=== PATIENT | male | born 1995 | race Hispanic/Latino ===

== ENCOUNTER 2019-04-19 09:28 | Emergency (ER) | payer OTHER ==
[~2019-04-19] VITALS: Ht 190.5 cm; Wt 100.7 kg
[2019-04-19] MEDS ORDERED: IBUPROFEN 400 MG TAB PO ONE (10:00)
[2019-04-19] MEDS ORDERED: DIAZEPAM 5 MG TAB PO ONE (10:15)
--- NOTE | 2019-04-19 10:25 | Diagnostic Imaging Report ---
History: Neck pain radiates to left arm, numbness Comparison studies: None Technique: Axial images were obtained through the cervical region. Coronal and sagittal images reconstructed from the axial data. Dose modulation, iterative reconstruction, and/or weight based adjustment of the mA/kV was utilized to reduce the radiation dose to as low as reasonably achievable. Intravenous contrast: None Findings: Please note: Ligament, spinal cord and or vascular abnormalities cannot be excluded on the basis of this examination Atlantoaxial articulation: Intact Alignment: Normal lordosis No scoliosis. Cervicomedullary junction: No abnormalities. Patent foramen magnum. Soft tissues: No gross abnormalities. Vertebrae: No fractures, neoplasm or infection. Degenerative changes: A small central disc protrusion at C4-C5 and small asymmetric left disc bulge at C5-C6 do not result in significant canal stenosis. Patent foramina. IMPRESSION: Small central disc protrusion at C4-C5 and small disc bulge at C5-C6 without significant canal or foraminal stenosis. Signed by: Dr. Yunier Judd M.D. on 04/19/2019 10:21 AM
--- NOTE | 2019-04-19 10:41 | Diagnostic Imaging Report ---
Exam: Left shoulder 2 views History: Pain Comparison: None. Findings: No fracture or malalignment. Joint spaces preserved. No abnormal soft tissue calcification or soft tissue defect. Impression: No acute osseous abnormality Signed by: Dr. Clay Hancock M.D. on 04/19/2019 10:38 AM
[2019-04-19] MEDS ORDERED: ULTRAM50 MG PO (10:45)
== END 2019-04-19 13:10 | disposition home or self-care (01) ==
LOC: ER 09:28
DX: M50.121 Cervical disc disorder at C4-C5 level with radiculopathy (principal)
CPT/HCPCS: 72125; 99283